=== PATIENT | female | born 1955 | race Caucasian/White ===

== ENCOUNTER 2017-10-21 09:02 | Emergency (ER) | payer BC ==
[~2017-10-21] VITALS: Ht 167.6 cm; Wt 102.0 kg
[2017-10-21] MEDS ORDERED: ASPIRIN 81 MG TABLET CHEW ONE (09:47)
[2017-10-21] MEDS ORDERED: ENALAPRILAT 1.25 MG/ML, 2ML ONE (09:47)
[2017-10-21] MEDS ORDERED: ENALAPRILAT 1.25 MG/ML, 2ML IV ONE (10:00)
[2017-10-21] MEDS ORDERED: ASPIRIN 81 MG TABLET CHEW PO ONE (10:00)
[2017-10-21 10:12] LABS: ALBUMIN 3.6 g/dL (3.4-5.0); ANION GAP 8 mmol/L (5-15); CALCIUM 8.5 mg/dL (8.5-10.1); CHLORIDE 110 mmol/L (98-107)
[2017-10-21 10:17] LABS: ALANINE AMINOTRANSFERASE 34 U/L (12-78); ALKALINE PHOSPHATASE 76 U/L (45-117); BILIRUBIN,TOTAL 0.4 mg/dL (0.2-1.0); CREATININE 0.82 mg/dL (0.55-1.02); TOTAL PROTEIN 7.4 g/dL (6.4-8.2); TROPONIN I < 0.015 ng/mL (0.000-0.045)
[2017-10-21 10:31] LABS: BASOPHILS # (AUTO) 0.06 x10^3/uL (0-0.1); BASOPHILS % (AUTO) 1 % (0-1); EOSINOPHILS # (AUTO) 0.16 x10^3/uL (0-0.4); EOSINOPHILS % (AUTO) 4 % (1-7); LYMPHOCYTES # (AUTO) 1.46 x10^3/uL (1-3.4); LYMPHOCYTES % (AUTO) 37 % (22-44); MD NO; MEAN CORPUSCULAR VOLUME 85.4 fL (80-100); MEAN PLATELET VOLUME 8.2 fL (7.4-10.4); MONOCYTES # (AUTO) 0.33 x10^3/uL (0.2-0.8); MONOCYTES % (AUTO) 8 % (2-9); NEUTROPHILS # (AUTO) 1.94 x10^3/uL (1.8-6.8); NEUTROPHILS % (AUTO) 49 % (42-75); PLATELET COUNT 304 x10^3/uL (130-400); RED BLOOD COUNT 4.16 x10^6/uL (3.82-5.3); RED CELL DISTRIBUTION WIDTH 17.8 % (9.6-15.2)
[2017-10-21] MEDS ORDERED: FUROSEMIDE 20 MG/2 ML IV ONE (11:00)
[2017-10-21] MEDS ORDERED: OMNIPAQUE 350 MG/ML, 150 ML BOTTLE ONE (11:31)
[2017-10-21] MEDS ORDERED: FUROSEMIDE 20 MG/2 ML ONE (11:50)
[2017-10-21 12:31] VITALS: BP 154/88
== END 2017-10-21 13:38 | disposition home or self-care (01) ==
LOC: ED 10:50
DX: R06.00 Dyspnea, unspecified (principal); I10 Essential (primary) hypertension
CPT/HCPCS: 36415; 71045; 71275; 80053; 83880; 84484; 85025; 85379; 93005; 96374; 96375; 99285; J1940; Q9967